=== PATIENT | female | born 1995 | race Caucasian/White ===

== ENCOUNTER 2018-12-13 19:00 | Inpatient (IN) | payer BC, OTHER ==
[~2018-12-13] VITALS: Ht 157.5 cm; Wt 79.0 kg
--- OUTSIDE RECORDS SUMMARY | ~2018-12-13 | XMS | Clinical Summary ---
Demographics + + + | Address | [address] | | | [place] [address] | + + + | Home Phone | | + + + | Preferred Language | Unknown | + + + | Marital Status | Single | + + + | Anabaptist Affiliation | Unknown | + + + | Race | Unknown | + + + | Ethnic Group | Unknown | + + + Author + + + | Author | [facility] | | | and [place] | + + + | Organization | [facility] | | | and [place] | + + + | Address | Unknown | + + + | Phone | Unavailable | + + + Support + + +---------+ + | Name | Relationship | Address | Phone | + + +---------+ + | Madeline Limon | ECON | Unknown | | + + +---------+ + Care Team Providers + +------+ + | Care Industrial Trainer Name | Role | Phone | + +------+ + PCP | Unavailable | + +------+ + Allergies No Known Allergies Medications + + + +---------+------+------+-------+ | Medication | Sig | Dispensed | Refills | Star | End | Statu | | | | | | t | Date | s | | | | | | Date | | | + + + +---------+------+------+-------+ | amoxicillin | 1 1/2 tsp po bid x | 100 mL | 0 | 11/0 | | Activ | | (AMOXIL) 400 mg/5 mL | 10 days | | | 3/20 | | e | | suspension | | | | 14 | | | + + + +---------+------+------+-------+ Active Problems No known active problems Social History + +-------+ +--------+------+ | Tobacco Use | Types | Packs/Day | Years | Date | | | | | Used | | + +-------+ +--------+------+ | Never Smoker | | | | | + +-------+ +--------+------+ + +---+---+---+ | Smokeless Tobacco: | | | | | Never Used | | | | + +---+---+---+ + + + | Sex Assigned at | Date Recorded | | | | + + + | Not on file | | + + + + + + + | Job Start Date | Occupation | Industry | + + + + | Not on file | Not on file | Not on file | + + + + + + + + | Travel History | Travel Start | Travel End | + + + + + + | No recent travel history available. | + + Last Filed Vital Signs + + + + | Vital Sign | Reading | Time Taken | + + + + | Blood Pressure | 98/64 | 01/19/2014 1203 PST | + + + + | Pulse | 76 | 01/19/20141202 PST | + + + + | Temperature | 37 C (98.6 F) | 01/19/20141202 PST | + + + + | Respiratory Rate | 12 | 01/19/20141202 PST | + + + + | Oxygen Saturation | 100% | 01/19/20141202 PST | + + + + | Inhaled Oxygen | - | - | | Concentration | | | + + + + | Weight | 64.2 kg (141 lb 9.6 | 01/19/20141202 PST | | | oz) | | + + + + | Height | 157.5 cm (5' 2") | 01/19/2014 1203 PST | + + + + | Body Mass Index | 25.9 | 01/19/20141202 PST | + + + + Plan of Treatment + + + + + | Health Maintenance | Due Date | Last Done | Comments | + + + + + | Vaccine: HPV (1 - | | | | | Female 3-dose | 8 | | | | series) | | | | + + + + + | Vaccine: | | | | | Dtap/Tdap/Td (1 - | 2 | | | | Tdap) | | | | + + + + + | Cervical Cancer | | | | | Screening (Pap) | 4 | | | + + + + + | Vaccine: Influenza | | | | | (#1) | 9 | | | + + + + + Results Not on filefrom Last 3 Months Insurance + +--------+ +--------+-------+---------+--------+ | Payer | Benefi | Subscriber | Effect | Phone | Address | Type | | | t Plan | ID | aydee | | | | | | / | | Dates | | | | | | Group | | | | | | + +--------+ +--------+-------+---------+--------+ | [employer] | AMERIG | [id number] | 04/19/19 | | | Medica | | HMO | ROUP | | 14-Pre | | | id | | | APPLE | | sent | | | | | | [place]ALTH | | | | | | | | [place] | | | | | | + +--------+ +--------+-------+---------+--------+ + +--------+ +--------+ + + | Guarantor Name | Accoun | Relation to | Date | Phone | Billing Address | | | t Type | Patient | of | | | | | | | | | | + +--------+ +--------+ + + | Josi Slaughter | Person | Self | [birth year] | [address] | | | richard/Greg | | 1995 | [phone] | [place] | | | aman | | | 5 (Home) | [phone] | + +--------+ +--------+ + + Advance Directives Patient has advance care planning documents on file. For more information, please contact:[facility] [place] [place] [address]
[~2018-12-13 19:00] MED LIST: CEFPODOXIME PR200 MG PO; IBUPROFEN800 MG PO; NON-ASPIRIN PA325 MG PO; NORCO 5-325 TA1 EACH PO; ZOFRAN ODT4 MG PO
--- NOTE | 2018-12-14 08:29 | PR ---
[facility] [address] [place], [place] [address] Signed Progress Notes IP Datetime Report Generated by CPN: 12/14/2018 08:29 PROGRESS NOTES: [id number] Impression: Slow Progression of Labor Procedures: Intrauterine Pressure Catheter; Scalp Electrode Plan: Continue present management; Augmentation; Anticipate Vaginal Delivery VITAL SIGNS: [id number] Vital Signs: Reviewed; Within Normal Limits EXAM: [id number] Dilatation: 6.5 Effacement: 80 Station: -1 Uterine Contractions: every 3-4 minutes MEMBRANES: [id number] Membrane Status: Ruptured Amniotic Fluid Color: Clear Comments: Slow progress, comfortable with Epidural. Internal monitors applied to evaluate contractions strength - continue to increase Pitocin to get adequate contraction pattern. Fetus A: [id number] FHR Baseline: 120 Variability: Moderate 6-25bpm Accelerations: 15X15 Presentation: Vertex Fetus B: [id number] Signing Physician: Nhan Linton MD Copies: ~ *Electronically Signed* 12/14/18 0829 NHAN LINTON MD PATIENT NAME: FIOLMENA HERNANDEZKENZISophie ENRST PROGRESS NOTE DATE OF : [birth year] PHYSICIAN: NHAN LINTON MD RPT #: [id number] REPORT IS CONFIDENTIAL AND NOT TO BE RELEASED WITHOUT AUTHORIZATION
--- NOTE | 2018-12-14 11:38 | PR ---
[facility] [address] [facility] [place], [place] [address] Signed Progress Notes IP Datetime Report Generated by MARYBEL: 12/14/2018 11:38 PROGRESS NOTES: [id number] Impression: Normal progression of labor Procedures: Intrauterine Pressure Catheter; Scalp Electrode Plan: Continue present management; Anticipate Vaginal Delivery VITAL SIGNS: [id number] Vital Signs: Reviewed; Within Normal Limits EXAM: [id number] Dilatation: 9.0 Effacement: 90 Station: -1 Uterine Contractions: every 3 minutes MEMBRANES: [id number] Membrane Status: Ruptured Amniotic Fluid Color: Clear Comments: Comfortable with Epidural. Episode of tachycardia aftert Epidural redose, no fever, no vaginal bleeding. O2 and position change done. Pitocin decreased by half, still having adequate contraction pattern. Now resolved. Continue monitoring FHR and contractions Fetus A: [id number] FHR Baseline: 145 Variability: Moderate 6-25bpm Accelerations: 15X15 Decelerations: Late; Variable Presentation: Vertex Fetus B: [id number] Signing Physician: Nhan Linton MD Copies: ~ *Electronically Signed* 12/14/18 1138 NHAN LINTON MD PATIENT NAME: ANDRE HERNANDEZ PROGRESS NOTE DATE OF : [birth year] PHYSICIAN: NHAN LINTON MD RPT #: [id number] REPORT IS CONFIDENTIAL AND NOT TO BE RELEASED WITHOUT AUTHORIZATION
--- NOTE | 2018-12-14 13:17 | PR ---
[facility] [address] [facility] [place], [place] [address] Signed Progress Notes IP Datetime Report Generated by CPN: 12/14/2018 13:17 PROGRESS NOTES: [id number] Impression: Normal progression of labor Procedures: Intrauterine Pressure Catheter; Scalp Electrode Plan: Continue present management; Anticipate Vaginal Delivery VITAL SIGNS: [id number] Vital Signs: Reviewed; Within Normal Limits EXAM: [id number] Dilatation: 10.0 Effacement: 100 Station: 0 Uterine Contractions: every 3 minutes MEMBRANES: [id number] Membrane Status: Ruptured Amniotic Fluid Color: Clear Comments: Starting to feel pressure. Will start pushing Fetus A: [id number] FHR Baseline: 135 Variability: Moderate 6-25bpm Accelerations: 15X15 Decelerations: Late; Variable Presentation: Vertex Fetus B: [id number] Signing Physician: Luci Linton MD Copies: ~ *Electronically Signed* 12/14/18 1317 LUCI LINTON MD PATIENT NAME: ANDRE HERNANDEZ PROGRESS NOTE DATE OF : [birth year] PHYSICIAN: LUCI LINTON MD RPT #: [id number] REPORT IS CONFIDENTIAL AND NOT TO BE RELEASED WITHOUT AUTHORIZATION
--- NOTE | 2018-12-14 14:35 | PR ---
[facility] [address] [facility] [place], [place] [address] Signed Progress Notes IP Datetime Report Generated by CPN: 12/14/2018 14:35 PROGRESS NOTES: [id number] Impression: Slow Progression of Labor Procedures: Intrauterine Pressure Catheter; Scalp Electrode Plan: Continue present management VITAL SIGNS: [id number] Vital Signs: Reviewed; Within Normal Limits EXAM: [id number] Dilatation: 10.0 Effacement: 100 Station: 0 Uterine Contractions: every 2-3 minutes MEMBRANES: [id number] Membrane Status: Ruptured Amniotic Fluid Color: Clear Comments: Pushing well, fetus posterior so trying different positions while pushing. Fetus A: [id number] FHR Baseline: 150 Variability: Moderate 6-25bpm Accelerations: 15X15 Decelerations: Variable Presentation: Vertex Other Presentation: ROP Fetus B: [id number] Signing Physician: Luci Linton MD Copies: ~ *Electronically Signed* 12/14/18 1435 LUCI LINTON MD PATIENT NAME: ANDRE HERNANDEZ PROGRESS NOTE DATE OF : [birth year] PHYSICIAN: LUCI LINTON MD RPT #: [id number] REPORT IS CONFIDENTIAL AND NOT TO BE RELEASED WITHOUT AUTHORIZATION
--- NOTE | 2018-12-14 15:44 | PR ---
[facility] [address] [place], [place] [address] Signed Progress Notes IP Datetime Report Generated by MARYBEL: 12/14/2018 15:44 PROGRESS NOTES: [id number] Impression: Arrest of dilatation/descent Procedures: Intrauterine Pressure Catheter; Scalp Electrode Plan: Deliver- Section Informed Consent Obtain: Section Delivery; Risks, Benefits and Alternatives Discussed VITAL SIGNS: [id number] Vital Signs: Reviewed; Within Normal Limits EXAM: [id number] Dilatation: 10.0 Effacement: 100 Station: 0 Uterine Contractions: every 2-3 minutes MEMBRANES: [id number] Membrane Status: Ruptured Amniotic Fluid Color: Clear Comments: Pushing well for about 2 hours, but no change in descent, getting very uncomfortable. Increasing caput on vertex. Imp: Failure to Descend, CPD Recommend C/S; discussed procedure, risks, benefits, option of continuing to push, but do not think this will be successful. Questions answered. PAtient agrees to C/S. Consent signed. OR and Anesthesia called. Fetus A: [id number] FHR Baseline: 150 Variability: Moderate 6-25bpm Accelerations: 15X15 Decelerations: Variable Presentation: Vertex Other Presentation: OP Fetus B: [id number] Signing Physician: Nhan Linton MD Copies: ~ *Electronically Signed* 12/14/18 1544 NHAN LINTON MD PATIENT NAME: ANDRE HERNANDEZ PROGRESS NOTE DATE OF : [birth year] PHYSICIAN: NHAN LINTON MD RPT #: [id number] REPORT IS CONFIDENTIAL AND NOT TO BE RELEASED WITHOUT AUTHORIZATION
--- NOTE | 2018-12-14 17:12 | NUR ---
12/14/18 1712 Sheets,Barbara 1701 PT ARRIVED TO ROOM 102, PT REPORT SMALL AMOUNT OF PRESSURE IN LOWER ABD, NOT PAIN. SPINAL LEVEL T-4 PT DENIES SOB. VSS. RESP EVEN AND UNLABORED. 171 BABT TO CHEST WITH FBC RN. PT REPORTS SHE IS TIRED AND FBC RN HELPING PT BREAST FEED.
--- NOTE | 2018-12-15 11:54 | PR ---
[facility] [address] [facility] [place], [place] [address] Signed PP Progress Notes Datetime Report Generated by CPN: 12/15/2018 11:54 SUBJECTIVE: [id number] Pain: Within normal limits Nausea/Vomiting: Denies Vital Signs: [id number] Vital Signs: Reviewed; Within Normal Limits Notable Details: PP Hgb/Hct = 8.0/25.0 EXAM: [id number] Abdomen/Uterus: Normal Lochia: Normal Extremities: Normal Incision: Normal IMPRESSION/PLAN/PROCEDURES: [id number] Impression: Normal progression Other Impression: PP Anemia Plan: Continue present management Procedures: None Progress Notes: Doing well, without complaint. D/C Bee, increase activity as tolerated. Signing Physician: Luci Linton MD Copies: ~ *Electronically Signed* 12/15/18 1154 LUCI LINTON MD PATIENT NAME: ANDRE HERNANDEZ PROGRESS NOTE DATE OF : 93 PHYSICIAN: LUCI LINTON MD RPT #: [id number] REPORT IS CONFIDENTIAL AND NOT TO BE RELEASED WITHOUT AUTHORIZATION
--- NOTE | 2018-12-16 10:35 | PR ---
[facility] [address] [facility] [place], [place] [address] Signed PP Progress Notes Datetime Report Generated by CPN: 12/16/2018 10:35 SUBJECTIVE: [id number] Pain: Within normal limits Nausea/Vomiting: Denies Flatus: No Vital Signs: [id number] Vital Signs: Reviewed; Within Normal Limits Notable Details: PP Hgb/Hct = 8.0/25.0 EXAM: [id number] Abdomen/Uterus: Normal Lochia: Normal Extremities: Normal Incision: Normal IMPRESSION/PLAN/PROCEDURES: [id number] Impression: Normal progression Other Impression: PP Anemia Plan: Continue present management Procedures: None Progress Notes: Doing well, but slowly improving. Plan home tomorrow. Signing Physician: Luci Linton MD Copies: ~ *Electronically Signed* 12/16/18 1035 LUCI LINTON MD PATIENT NAME: ANDRE HERNANDEZ PROGRESS NOTE DATE OF : 93 PHYSICIAN: LUCI LINTON MD RPT #: [id number] REPORT IS CONFIDENTIAL AND NOT TO BE RELEASED WITHOUT AUTHORIZATION
--- NOTE | 2018-12-16 10:40 | OR ---
[facility] [address] [facility] [place] [place] [address] Signed DATE OF OPERATION: 12/14/2018 SURGEON: Nhan Mercedes MD Patient of Dr. Mercedes. PREOPERATIVE DIAGNOSIS: Failure to descend and cephalopelvic disproportion. POSTOPERATIVE DIAGNOSIS: Failure to descend and cephalopelvic disproportion. PROCEDURE PERFORMED: Primary low transverse segment section, delivery of live female . HOG SLAUGHTERER: Dr. Gould. ANESTHESIA: Epidural. ESTIMATED BLOOD LOSS: 500 mL. COMPLICATIONS: None. DRAINS: Bee to bladder. FINDINGS: Live female infant, Apgars 9 and 9. Weight 9 pounds 0 ounces. Thick meconium fluid. Normal uterus, normal tubes and ovaries bilateral. DESCRIPTION OF PROCEDURE: The patient was brought to the operating room, placed in supine position. After adequate epidural anesthesia was obtained, was prepped and draped in usual sterile fashion. The patient already had Bee catheter in bladder. A Pfannenstiel skin incision was made with a scalpel and extended through subcutaneous tissue with a Bovie. Fascia was nicked with scalpel and extended in transverse fashion using curved scissors. Electronically Signed By: NHAN MERCEDES MD 12/16/18 1040 PATIENT NAME: ANDRE HERNANDEZ OPERATIVE REPORT DATE OF : [birth year] REPORT #: [id number] PHYSICIAN: NHAN MERCEDES MD PCP: ERIS MORALES DO REPORT IS CONFIDENTIAL AND NOT TO BE RELEASED WITHOUT AUTHORIZATION [facility] [address] [place], [place] [address] Signed The underlying abdominal musculature was bluntly and sharply from the fascia above and below the incision. The abdominal musculature was bluntly and sharply along the midline. The peritoneum was grasped with grasping hemostats, elevated, nicked with Metzenbaum scissors, and extended in vertical fashion using Metzenbaum scissors. The Ethan self-retaining retractor was inserted into the incision and tightened in place. The lower uterine segment was carefully nicked with scalpel and entered the uterus with finger dissection. The incision was extended in transverse fashion using finger dissection. Moderate amount of thick meconium came from the incision. The infant was noted to be in vertex LOP presentation. Infant's head was wedged in the pelvis. The head was then delivered from the incision. The rest of the easily delivered from the incision. The placed stomach down and head down to help with drainage and the cried spontaneously and vigorously on the table. Cord was doubly clamped and cut. The infant was passed off table in good condition to awaiting nurse. The placenta was manually removed. Uterine cavity explored with a lap pad to remove any retained membranes. An angle stitch of 0 Monocryl was placed at one end of the incision and running locking stitch of 0 Monocryl starting at the other end used to close the incision. There was small bleeding area on the left angle. This was controlled with a simple stitch of 0 Monocryl. A second running layer of 0 Monocryl was used to imbricate the first layer. Good hemostasis was then noted. Entire pelvis was irrigated, suctioned, examined of any superficial bleeding spots, cauterized with the Bovie. The Ethan self-retaining retractor was removed and a sheet of ACell placed over the lower uterine segment to help with healing. The anterior wall of peritoneum was closed using running stitch of 2-0 Vicryl suture. The abdominal musculature was reapproximated using interrupted stitch of 0 Vicryl suture. The abdominal wall was then irrigated, suctioned, examined of any bleeding spots, cauterized with the Bovie. Powdered ACell was then sprinkled on the abdominal musculature and the fascia closed using two running stitches of 0 Vicryl suture meeting in the midline. Subcutaneous tissue was irrigated, suctioned, examined of any bleeding spots, cauterized with the Bovie. Subcutaneous tissue was closed using interrupted stitches of 3-0 Vicryl suture and skin reapproximated using skin clips. The patient tolerated the procedure well, went to recovery room in good condition. The sponge, needle, and instrument count correct at end of procedure. MD HOMA Tavares/RICHARDL /[id number] Electronically Signed By: NHAN MERCEDES MD 12/16/18 1040 PATIENT NAME: ANDRE HERNANDEZ OPERATIVE REPORT DATE OF : [birth year] REPORT #: [id number] PHYSICIAN: NHAN MERCEDES MD PCP: ERIS MORALES DO REPORT IS CONFIDENTIAL AND NOT TO BE RELEASED WITHOUT AUTHORIZATION [address] [address] Signed Copies: ~ Electronically Signed By: NHAN MERCEDES MD 12/16/18 1040 PATIENT NAME: ANDRE HERNANDEZ OPERATIVE REPORT DATE OF : [birth year] REPORT #: [id number] PHYSICIAN: NHAN MERCEDES MD PCP: ERIS MORALES DO REPORT IS CONFIDENTIAL AND NOT TO BE RELEASED WITHOUT AUTHORIZATION
--- NOTE | 2018-12-17 12:10 | PR ---
[facility] [address] [facility] [place], [place] [address] Signed PP Progress Notes Datetime Report Generated by CPN: 12/17/2018 12:10 SUBJECTIVE: [id number] Pain: Within normal limits Nausea/Vomiting: Denies Flatus: No Vital Signs: [id number] Vital Signs: Reviewed; Within Normal Limits Notable Details: PP Hgb/Hct = 8.0/25.0 EXAM: [id number] Abdomen/Uterus: Normal Lochia: Normal Extremities: Normal Incision: Normal IMPRESSION/PLAN/PROCEDURES: [id number] Impression: Normal progression Other Impression: PP Anemia Plan: Discharge Procedures: None Progress Notes: Doing well, without complalint, ready to go home. Signing Physician: Luci Linton MD Copies: ~ *Electronically Signed* 12/17/18 1210 LUCI LINTON MD PATIENT NAME: ANDRE HERNANDEZ PROGRESS NOTE DATE OF : [birth year] PHYSICIAN: LUCI LINTON MD RPT #: [id number] REPORT IS CONFIDENTIAL AND NOT TO BE RELEASED WITHOUT AUTHORIZATION
== END 2018-12-17 13:55 | disposition home or self-care (01) | DRG 787 ==
LOC: FBCO 19:00 → FBC 19:46
PROVIDERS: ADMIT General Practice
PROC: 10D00Z1 Extraction of Products of Conception, Low, Open Approach (ICD-10-PCS; 2018-12-14)
PROC: 10H07YZ Insertion of Other Device into Products of Conception, Via Natural or Artificial Opening (ICD-10-PCS; 2018-12-14)
PROC: 00HU33Z Insertion of Infusion Device into Spinal Canal, Percutaneous Approach (ICD-10-PCS; 2018-12-14)
PROC: 3E0R3BZ Introduction of Anesthetic Agent into Spinal Canal, Percutaneous Approach (ICD-10-PCS; 2018-12-14)
PROC: 10D00Z1 Extraction of Products of Conception, Low, Open Approach (ICD-10-PCS; principal; 2018-12-14 16:00)
DX: O33.9 Maternal care for disproportion, unspecified (principal); O63.9 Long labor, unspecified; Z3A.40 40 weeks gestation of pregnancy; Z37.0 Single live birth; O32.4XX0 Maternal care for high head at term, not applicable or unspecified; O62.1 Secondary uterine inertia; O77.0 Labor and delivery complicated by meconium in amniotic fluid; O76 Abnormality in fetal heart rate and rhythm complicating labor and delivery; O48.0 Post-term pregnancy; O90.81 Anemia of the puerperium; D64.9 Anemia, unspecified
CPT/HCPCS: 01961; 36415; 85027; J0690; J2175; J2274; J2300; J2405; J2590; J2795; J7120

== ENCOUNTER → 2020-01-27 | Emergency (ER) | payer BC ==
[~2020-01-27] VITALS: Ht 157.5 cm; Wt 66.6 kg
[~2020-01-27] MED LIST changes: +ZOFRAN4 MG PO
== END ==
LOC: ED 00:01
DX: O99.891 Other specified diseases and conditions complicating pregnancy (principal); N13.30 Unspecified hydronephrosis; N23 Unspecified renal colic; Z3A.14 14 weeks gestation of pregnancy
CPT/HCPCS: 76770; 76815; 81001; 99284-25

== ENCOUNTER 2020-01-29 18:09 | Emergency (ER) | payer BC ==
[~2020-01-29] VITALS: Ht 157.5 cm; Wt 66.6 kg
--- OUTSIDE RECORDS SUMMARY | 2020-01-29 18:12 | XMS ---
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 Stevie has no Care Guidelines for this patient. [facility] (12 MO.) [facility] NOTE: Visits indicate total known visits. ED/C VISIT TRACKING (12 MO.) [facility] COMPLAINT: - FLANK PAIN 01/27/2020 00:01 [facility] OR TYPE: Emergency COMPLAINT: - ABDOMINAL PAIN,BACK PAIN INPATIENT VISIT TRACKING (12 MO.) No inpatient visits to display in this time frame [email or web address]
== END 2020-01-29 22:36 | disposition home or self-care (01) ==
LOC: ED 18:09
DX: O99.891 Other specified diseases and conditions complicating pregnancy (principal); N13.2 Hydronephrosis with renal and ureteral calculous obstruction; O99.282 Endocrine, nutritional and metabolic diseases complicating pregnancy, second trimester; E87.6 Hypokalemia; Z3A.14 14 weeks gestation of pregnancy
CPT/HCPCS: 76770; 80053; 81001; 85025; 96374; 96375; 99285-25; J1170; J2405; J7030

== ENCOUNTER 2020-07-16 14:27 | Inpatient (IN) | payer BC ==
[2020-07-20] MEDS ORDERED: PRENATAL FORMU1 EAC3 PO (07:42)
[2020-07-20] MEDS ORDERED: FEOSOL325 MG PO (07:43)
--- NOTE | 2020-07-20 08:48 | NUR ---
07/20/20 0848 Kandice Montemayor 0840: PT TO ROOM 104 ON VIA STRETCHER FOR RECOVERY. AWAKE AND ORIENTED. VSS, RESP EVEN AND UNLABORED. SATS >94% ON RA. FUNDUS FIRM -1 UMBILICUS, BLEEDING SCANT. SKIN TO SKIN, 20G IV INFUSING APPROPRIATELY IN RIGHT WRIST, WNL.
--- NOTE | 2020-07-21 09:25 | OR ---
[facility] [address] [place], [place] [address] Signed DATE OF OPERATION: 07/20/2020 SURGEON: Nhan Mercedes MD PREOPERATIVE DIAGNOSES: 1. Term . 2. Previous section. 3. Gestational diabetes, insulin controlled. POSTOPERATIVE DIAGNOSES: 1. Term . 2. Previous section. 3. Gestational diabetes, insulin controlled. PROCEDURE: Repeat low transverse segment section, delivery of live female infant. TENTER: Mejia ANESTHESIA: Spinal with postop TAP block. ESTIMATED BLOOD LOSS: 600 mL. COMPLICATIONS: None. DRAINS: Bee to bladder. FINDINGS: Live female , Apgars 8 and 9, weight 8 pounds 1 ounce. Normal uterus. Normal tubes and ovaries bilateral. DESCRIPTION OF PROCEDURE: The patient was brought to the operating room, placed in supine position. After adequate spinal anesthesia was obtained, she was prepped and draped in the usual sterile fashion. Bee catheter was placed in the bladder. Pfannenstiel skin incision was made Electronically Signed By: NHAN MERCEDES MD 07/21/20 0925 PATIENT NAME: ANDRE HERNANDEZ OPERATIVE REPORT DATE OF : [birth year] REPORT #: [id number] PHYSICIAN: NHAN MERCEDES MD PCP: NO PRIMARY CARE PHYSICIAN REPORT IS CONFIDENTIAL AND NOT TO BE RELEASED WITHOUT AUTHORIZATION [facility] [address] [place] [address] [place], [place] [address] Signed excising the previous skin scar using a scalpel. The subcutaneous tissue was then dissected with the Bovie and the fascia nicked with scalpel and extended in transverse fashion using curved scissors. The underlying abdominal musculature was bluntly and sharply from the fascia above and below the incision. The abdominal musculature was then bluntly and sharply along the midline. The peritoneum was grasped, hemostats elevated, nicked with scissors, extended in vertical fashion using curved scissors. The Ethan self-retaining retractor was inserted into the incision and tightened in place. The lower uterine segment was identified, and the lower uterine segment carefully nicked with scalpel in the midline. Finger dissection was used to extend the incision in transverse fashion. Bulging bag of clear fluid came from the incision, this was opened with pickups with teeth. The was noted to be in the vertex ARNOLDO presentation. The head easily delivered from the incision. The rest of the infant was easily delivered from the incision and cord doubly clamped and cut. The was passed off table in good condition awaiting nurse. The placenta was manually removed. Uterine cavity explored with a lap pad to remove any retained membranes. An angle stitch of 0-Monocryl was placed at one in the incision and a running locking stitch of 0-Monocryl starting at the other end used to close the incision. A second running stitch of 0-Monocryl was used to imbricate the first layer. There was still some bleeding at the right angle, this was controlled with two quvuxu-zz-cjqmc stitches of 0-Monocryl. Just to the left of midline was another area of bleeding, which took three ziehve-zp-gyqyi stitches of 0-Monocryl to control. At this point, the entire pelvis was irrigated, suctioned, and examined, and any superficial bleeding spots cauterized with the Bovie. Good hemostasis was obtained. The Ethan retractor was removed. Sheet of ACell was placed over the lower uterine segment to help with healing. The anterior wall of the peritoneum was closed using running stitch of 2-0 Vicryl suture. The abdominal musculature reapproximated using interrupted stitch of 0-Vicryl suture. The abdominal wall incision was irrigated, suctioned, and examined, and any bleeding spots cauterized with the Bovie. Powdered ACell sprinkled over the abdominal musculature and the fascia closed using two running stitch of 0-Vicryl suture meeting in the midline. Subcutaneous tissue was irrigated, suctioned, and examined, and any bleeding spots cauterized with the Bovie. Subcutaneous tissue was closed using interrupted stitches of 3-0 Vicryl suture. The skin reapproximated using skin clips. The patient tolerated the procedure well and went to the recovery room in good condition. The sponge, needle, and instrument counts correct at the end of the procedure, and Anesthesia then performed TAP block for further pain control after the procedure. Nhan Mercedes MD Electronically Signed By: NHAN MERCEDES MD 07/21/20 0925 PATIENT NAME: ANDRE HERNANDEZ OPERATIVE REPORT DATE OF : [birth year] REPORT #: [id number] PHYSICIAN: NHAN MERCEDES MD PCP: NO PRIMARY CARE PHYSICIAN REPORT IS CONFIDENTIAL AND NOT TO BE RELEASED WITHOUT AUTHORIZATION [address] [address] Signed [facility] /[id number] Copies: ~ Electronically Signed By: NHAN MERCEDES MD 07/21/20 0925 PATIENT NAME: ANDRE HERNANDEZ OPERATIVE REPORT DATE OF : [birth year] REPORT #: [id number] PHYSICIAN: NHAN MERCEDES MD PCP: NO PRIMARY CARE PHYSICIAN REPORT IS CONFIDENTIAL AND NOT TO BE RELEASED WITHOUT AUTHORIZATION
== END 2020-07-22 10:30 | disposition home or self-care (01) | DRG 788 ==
LOC: FBC 07-20 04:57
PROVIDERS: ADMIT General Practice; ATTEND General Practice
PROC: 3E0T3BZ Introduction of Anesthetic Agent into Peripheral Nerves and Plexi, Percutaneous Approach (ICD-10-PCS; 2020-07-20)
PROC: 3E0T33Z Introduction of Anti-inflammatory into Peripheral Nerves and Plexi, Percutaneous Approach (ICD-10-PCS; 2020-07-20)
PROC: 10D00Z1 Extraction of Products of Conception, Low, Open Approach (ICD-10-PCS; principal; 2020-07-20 06:45)
DX: O34.211 Maternal care for low transverse scar from previous cesarean delivery (principal); N85.8 Other specified noninflammatory disorders of uterus; Z3A.39 39 weeks gestation of pregnancy; Z37.0 Single live birth; O99.02 Anemia complicating childbirth; D64.9 Anemia, unspecified; G89.18 Other acute postprocedural pain; O24.424 Gestational diabetes mellitus in childbirth, insulin controlled; Z79.899 Other long term (current) drug therapy
CPT/HCPCS: 01961; 36415; 64488; 76942; 85027; A9270; J0690; J1100; J1885; J2001; J2274; J2300; J2370; J2405; J2590; J2795; J3010; J7121

== ENCOUNTER 2023-01-26 09:27 | Inpatient (IN) | payer BC, OTHER ==
[~2023-01-26] VITALS: Ht 160 cm; Wt 76.7 kg
--- NOTE | ~2023-01-26 | OR ---
[facility] [address] [place], [place] [address] Draft DATE OF OPERATION: 02/20/2023 SURGEON: Larry Mejia DO PREOPERATIVE DIAGNOSES: 1. Term . 2. History of prior . 3. Gestational diabetes with suboptimal control on insulin. 4. Polyhydramnios. 5. Macrosomia. POSTOPERATIVE DIAGNOSES: 1. Term . 2. History of prior . 3. Gestational diabetes with suboptimal control on insulin. 4. Polyhydramnios. 5. Macrosomia. PROCEDURE PERFORMED: Repeat low transverse delivery. ANESTHESIA: Spinal with postoperative TAP blocks. MEDICAL INSURANCE VERIFIER: Chelle Gould M.D. ESTIMATED BLOOD LOSS: 600 mL. COMPLICATIONS: None. DRAINS: Bee to gravity. FINDINGS: Delivery of viable male , 7 pounds 13 ounces with Apgars of 8 and 9 in the ROT position via repeat low transverse uterine incision. Clear amniotic fluid. No nuchal cord. Normal uterus, tubes, and ovaries. PATIENT NAME: ANDRE SLAUGHTER OPERATIVE REPORT DATE OF : [birth year] REPORT #: [id number] PHYSICIAN: LARRY MEJIA) PCP: VINITA MIX MD REPORT IS CONFIDENTIAL AND NOT TO BE RELEASED WITHOUT AUTHORIZATION [facility] [address] [place] [address] [place] ESTIMATED BLOOD LOSS: 600. INDICATIONS: Mrs. Slaughter is a very pleasant 27-year-old, G3, P2, with IUP at 37 weeks and four days' gestation, who presents for scheduled repeat low transverse delivery. complicated by GDM with suboptimal control despite increasing doses of insulin, now with polyhydramnios and macrosomia. Risks, benefits, and alternatives of repeat were reviewed. The patient had considered bilateral tubal ligation earlier in her , but again declines this today. DESCRIPTION OF PROCEDURE: The patient was taken the OR, where time-out was performed to confirm correct patient and correct procedure. Spinal anesthesia was adequately established. The patient was prepped and draped in the supine position with bump under the right hip. Bee catheter was inserted. SCDs were on and running and the patient received Ancef 2 g preoperatively per SCIP protocol. Preoperative glucose level was 86. Once spinal was noted to be adequate, a Pfannenstiel skin incision was made through the prior scar and carried down to the fascia. The fascia was nicked in the midline and fascial incision extended bilaterally using curved Ochoa scissors. Fascia was grasped with Juliano's, elevated, and the underlying rectus muscles dissected off bluntly and sharply. Rectus was fused in the midline and was grasped with hemostats, elevated, and entered sharply using Metzenbaum scissors to bluntly dissect the rectus apart. Peritoneum was entered bluntly. Peritoneal incision was extended cephalad and caudad using sharp and blunt dissection and the lower uterine segment was identified. An Ethan self retractor was placed and hysterotomy was performed using a surgical scalpel. The hysterotomy was extended bilaterally using blunt dissection. An amnion was ruptured for a large amount of clear fluid. Surgeon's hand was placed in the uterine cavity. The head elevated into the abdomen, delivered with the assistance of fundal pressure in the ROT position with no nuchal identified. was vigorous and cried and handed to the waiting pediatric team for further care. Cord blood was obtained for routine analysis. Placenta was manually expressed, intact with a centrally inserted three-vessel cord. The uterine cavity was cleared of any remaining products of conception or clot. The Pitocin was administered per protocol. Hysterotomy was repaired in two layers of 0-Monocryl, the first being a running locked layer and the second being a running imbricating layer in the vertical manner. The pelvis was irrigated, found to be hemostatic. Normal uterus, tubes, and ovaries were appreciated. The Ethan self retractor was removed and peritoneum was reapproximated using 2-0 Vicryl in a running nonlocked manner. Rectus was made hemostatic with judicious use of Bovie electrocautery and the rectus muscles were gently plicated in the midline using three interrupted sutures of 0-Vicryl. The fascia was reapproximated using 0-Vicryl in a running PATIENT NAME: ANDRE SLAUGHTER OPERATIVE REPORT DATE OF : [birth year] REPORT #: [id number] PHYSICIAN: LARRY MEJIA) PCP: VINITA MIX MD REPORT IS CONFIDENTIAL AND NOT TO BE RELEASED WITHOUT AUTHORIZATION [address] [address] [place] nonlocked manner. Subcuticular tissue was irrigated, made hemostatic with judicious use of Bovie electrocautery. This was then re-approximated using 3-0 Vicryl in a running nonlocked manner. Skin was reapproximated using surgical luly. The uterus was Crede'd for scant amount of blood and the patient remained in the OR for postoperative TAP blocks. Sponge, needle, and instrument count was correct x2 at the end of the procedure. Dr. Gould was present and participated in all portions of the procedure. DO CARLOS Dominguez/DIANA /[id number] Copies: ~ PATIENT NAME: ANDRE SLAUGHTER OPERATIVE REPORT DATE OF : [birth year] REPORT #: [id number] PHYSICIAN: LARRY MEJIA DO (JD) PCP: VINITA MIX MD REPORT IS CONFIDENTIAL AND NOT TO BE RELEASED WITHOUT AUTHORIZATION
[~2023-01-26 09:27] MED LIST changes: +FEOSOL325 MG PO; +PRENATAL FORMU1 EAC3 PO
[2023-02-20 05:35] LABS: HEMATOCRIT 28.3 % (35.0-50.0); HEMOGLOBIN 8.9 g/dL (12.0-18.0); MCH 22.2 (27-36); MCHC 31.3 g/dl (30-36); RBC 3.99 M/ul (4.3-5.7); RDW 19.3 (10.5-15.0)
[2023-02-20 05:40] VITALS: BP 124/71
[2023-02-20 05:52] LABS: AMPHETAMINES, UR NEGATIVE (NEGATIVE); BARBITURATES, UR NEGATIVE (NEGATIVE); BENZODIAZEPINES, UR NEGATIVE (NEGATIVE); BUPRENORPHINE,UR NEGATIVE (NEGATIVE); COCAINE, UR NEGATIVE (NEGATIVE); MARIJUANA (THC), UR NEGATIVE (NEGATIVE); MDMA, UR NEGATIVE (NEGATIVE); METHADONE, UR NEGATIVE (NEGATIVE); METHAMPHETAMINE, UR NEGATIVE (NEGATIVE); OPIATES, UR NEGATIVE (NEGATIVE); OXYCODONE, UR NEGATIVE (NEGATIVE); PHENCYCLIDINE, UR NEGATIVE (NEGATIVE); TRICYCLIC ANTIDEPRESSANT, UR NEGATIVE (NEGATIVE)
[2023-02-20 06:09] LABS: ABO A; ANTIBODY SCREEN NEGATIVE; RH POSITIVE
--- NOTE | 2023-02-20 09:27 | NUR ---
02/20/23 0927 Sheets,Barbara 0912 PT ARRIVED TO ROOM IN [facility], [facility] RN AT BEDSIDE. PT DENEIS CONCERNS. PT REPORTS SPINAL IS HIGH BUT NO SOB OR CONCERNS. 0915 BABY TO CHEST WITH [facility] RN. IV IN RIGHT HAND AND INFUSING WITH LR AND 30 PIT IN BAG.
[2023-02-20 09:39] VITALS: BP 98/64
[2023-02-21 05:43] LABS: HEMATOCRIT 24.9 % (35.0-50.0); HEMOGLOBIN 7.8 g/dL (12.0-18.0); MCH 22.6 (27-36); MCHC 31.3 g/dl (30-36); MCV 72.2 fl (81-99); RBC 3.45 M/ul (4.3-5.7); RDW 18.7 (10.5-15.0)
--- NOTE | 2023-02-21 11:07 | NUR ---
[facility] ROUNDS. 15 MINUTES. PT SITTING UP IN BED. FATHER HOLDING BABY ON COUCH. ALL EXHIBITED SITUATIONALLY CONSISTENT RESPONSES. PROVIDED HOSPITALITY. PROVIDED PRAYER.
--- NOTE | 2023-02-22 12:09 | PR ---
[facility] [address] [facility] [place], [place] [address] Signed PP Progress Notes Datetime Report Generated by CPN: 02/22/2023 12:09 SUBJECTIVE: [id number] Pain: Within Normal Limits Nausea/Vomiting: Denies Flatus: Yes Bowel Movement: No Vital Signs: [id number] Vital Signs: Reviewed; Within Normal Limits Cardiovascular: Normal Respiratory: Normal Abdomen/Uterus: Normal Lochia: Normal Vulva/Perineum: Not Done Breasts: Not Done CVA Tenderness: Normal Extremities: Normal Incision: Normal Progress: Normal Exam Comments: Fundus firm U-2 nontender. Incision healing well IMPRESSION/PLAN/PROCEDURES: [id number] Impression: Normal Progression Plan: Remove Sirena; Discharge Progress Notes: Pt seen and examined. Doing well. Ambulating, voiding, and toelrating full diet. Pain and lochia minimal. Breastfeednig well. No fevers/chills. No light headedness / dizziness. No concerns. D/c home. Reviewed d/c instructions in detail. Sirena remove today. F/U 2 wks unsure of pp contraception. Signing Physician: Larry Mejia DO Copies: ~ *Electronically Signed* 02/22/23 2026 LARRY MEJIA (TRUPTI) DO PATIENT NAME: ANDRE HERNANDEZ PROGRESS NOTE DATE OF : [birth year] PHYSICIAN: LARRY MEJIA (JD) DO RPT #: [id number] REPORT IS CONFIDENTIAL AND NOT TO BE RELEASED WITHOUT AUTHORIZATION
== END 2023-02-22 14:15 | disposition home or self-care (01) | DRG 788 ==
LOC: FBC 02-20 05:00
PROVIDERS: ADMIT Obstetrics & Gynecology; ATTEND Obstetrics & Gynecology
PROC: 10D00Z1 Extraction of Products of Conception, Low, Open Approach (ICD-10-PCS; principal; 2023-02-20 07:30)
DX: O34.211 Maternal care for low transverse scar from previous cesarean delivery (principal); O24.424 Gestational diabetes mellitus in childbirth, insulin controlled; Z3A.37 37 weeks gestation of pregnancy; Z37.0 Single live birth; O99.02 Anemia complicating childbirth; D50.9 Iron deficiency anemia, unspecified; O40.3XX0 Polyhydramnios, third trimester, not applicable or unspecified; O36.63X0 Maternal care for excessive fetal growth, third trimester, not applicable or unspecified; O99.824 Streptococcus B carrier state complicating childbirth
CPT/HCPCS: 01961; 36415; 80307; 85027; 86850; 86900; 86901; A9270; J0690; J1100; J1650; J1885; J2001; J2274; J2371; J2405; J2590; J2795; J3010; J7121

== ENCOUNTER 2023-10-09 22:11 | Emergency (ER) | payer BC, OTHER ==
[~2023-10-09] VITALS: Ht 157.5 cm; Wt 68.0 kg
[2023-10-09] MEDS ORDERED: MUPIROCIN22 GM TOP (22:21)
[2023-10-09] MEDS ORDERED: SERTRALINE HCL50 MG PO (22:21)
[2023-10-09] MEDS ORDERED: CEPHALEXIN500 MG PO (22:21)
[2023-10-09] MEDS ORDERED: AMOX TR-K CLV1 EAC1 PO (22:27)
[2023-10-09] MEDS ORDERED: PERCOCET 5-3251 EACH PO (22:27)
[2023-10-09] MEDS ORDERED: OXYCODONE/ACETAMINOPHEN 1 TAB HOME.PACK PO ONE (22:30)
[2023-10-09] MEDS ORDERED: AMOXICILLIN/CLAVULANATE K 875 MG HOME.PACK PO ONE (22:30)
[2023-10-09] MEDS ORDERED: KETOROLAC TROMETHAMINE 60 MG/2 ML VIAL IM ONE (22:30)
[2023-10-09 22:51] VITALS: BP 108/71
== END 2023-10-09 22:51 | disposition home or self-care (01) ==
LOC: ED 22:11
DX: L03.031 Cellulitis of right toe (principal); Z79.899 Other long term (current) drug therapy
CPT/HCPCS: J1885

== ENCOUNTER 2023-10-11 13:19 | Emergency (ER) | payer BC, OTHER ==
[~2023-10-11] VITALS: Ht 157.5 cm; Wt 69.0 kg
[~2023-10-11 13:19] MED LIST changes: +AMOX TR-K CLV1 EAC1 PO; +CEPHALEXIN500 MG PO; +MUPIROCIN22 GM TOP; +PERCOCET 5-3251 EACH PO; +SERTRALINE HCL50 MG PO
--- OUTSIDE RECORDS SUMMARY | 2023-10-11 13:20 | XMS ---
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 Care History Medical/Surgical 01/30/2020 [facility] \R\- PATIENT HAS A FOLLOW UP APT WITH MANFRED LINTON ON 02/10/2020. E.DMaricel VISIT COUNT (12 MO.) 2 [facility] TOTAL 2 NOTE: Visits indicate total known visits. ED/UCC VISIT TRACKING (12 MO.) 10/11/2023 13:20 [facility] TYPE: Emergency COMPLAINT: - WOUND CHECK 10/09/2023 22:11 [facility] TYPE: Emergency COMPLAINT: - WOUND CHECK DIAGNOSES: - Cellulitis of right toe - Local infection of the skin and subcutaneous tissue, unspecified - Other [facility] drug therapy INPATIENT VISIT TRACKING (12 MO.) 02/20/2023 05:[address] [facility] TYPE: [facility] COMPLAINT: - REPEAT C/SECTION, POSSIBLE BTL DIAGNOSES: - 37 weeks gestation of - 37 weeks gestation of - Anemia complicating childbirth - Anemia complicating childbirth - Full-term premature rupture of membranes, onset of labor within 24 hours of rupture - Gestational diabetes mellitus in childbirth, insulin controlled - Gestational diabetes mellitus in childbirth, insulin controlled - Gestational diabetes mellitus in , insulin controlled - Iron deficiency anemia, unspecified - Iron deficiency anemia, unspecified - Maternal care for excessive growth, third trimester, not applicable or unspecified - Maternal care for excessive growth, third trimester, not applicable or unspecified - Maternal care for low transverse scar from previous delivery - Maternal care for unspecified type scar from previous delivery - Polyhydramnios, third trimester, not applicable or unspecified - Polyhydramnios, third trimester, not applicable or unspecified - Single live - Single live - Streptococcus B carrier state complicating childbirth - Streptococcus B carrier state complicating childbirth [email or web address]
[2023-10-11 15:20] VITALS: BP 117/81
== END 2023-10-11 15:20 | disposition home or self-care (01) ==
LOC: ED 13:19
DX: L03.031 Cellulitis of right toe (principal); Z79.899 Other long term (current) drug therapy
CPT/HCPCS: 10060; 99283-25